=== PATIENT | female | born 1950 | race Caucasian/White ===

== ENCOUNTER 2018-05-05 09:03 | Day surgery (SDC) | payer MEDICARE ==
[2018-05-05] MEDS ORDERED: Lactated Ringers 1,000 ML IV SCH (10:15)
[2018-05-05] MEDS ORDERED: fentaNYL 100 MCG/2 ML SDV ONE (10:50)
[2018-05-05] MEDS ORDERED: Midazolam 1 MG/ML 2 ML SDV ONE (10:50)
[2018-05-05] MEDS ORDERED: Propofol 200 MG/20 ML SDV ONE ×2 (10:50→12:18)
--- NOTE | 2018-05-05 13:02 | OR ---
DATE OF PROCEDURE: 05/05/2018 PREOPERATIVE DIAGNOSIS: History of colon polyps. POSTOPERATIVE DIAGNOSES: 1. Diverticulosis. 2. History of colon polyps. PROCEDURE: Colonoscopy to the cecum. ANESTHESIA: IV anesthesia with monitored anesthesia care. INDICATION: This 67-year-old white female is referred for a colonoscopy because of a history of colon polyps. She says her last colonoscopic exam was done 3 years ago. I counseled her for the procedure, including risks and alternatives, and she gave her informed consent to proceed. DESCRIPTION OF PROCEDURE: The patient was placed in the left lateral decubitus position. IV anesthesia was administered by the Anesthesia Service. Time-out was held. A rectal exam was performed, which was unremarkable. The flexible video Olympus colonoscope was introduced through her anus, up her rectum and out her colon, all the way to the cecum. En route, we saw a few scattered left-sided diverticula. There was no bleeding or inflammation associated with them. Once the cecum was reached, the scope was slowly withdrawn examining the mucosa throughout. No additional mucosal abnormalities were noted. The scope was retroflexed in the rectum with the distal rectum appearing unremarkable. The scope was straightened and removed. She tolerated the procedure well. Kanu Pettit MD /[id number]
== END 2018-05-05 13:49 | disposition home or self-care (01) ==
LOC: JP.SDS 09:03
PROVIDERS: ATTEND Surgery
DX: Z12.11 Encounter for screening for malignant neoplasm of colon (principal); K57.30 Diverticulosis of large intestine without perforation or abscess without bleeding; Z86.010 Personal history of colon polyps; Z87.891 Personal history of nicotine dependence
CPT/HCPCS: 45378; J2250; J2704; J3010; J7120

== ENCOUNTER 2020-11-23 08:13 | Emergency (ER) | payer MEDICARE ==
[2020-11-23] MEDS ORDERED: cefTRIAXone 1 GM in Sodium Chloride 0.9% 50 ML IV ONE (08:38)
[2020-11-23] MEDS ORDERED: Amoxicillin/Clavulanate K 875-125 MG Tab PO ONE (08:39)
[2020-11-23] MEDS ORDERED: Bacitracin Oint 1 GM U/D Packet TOP ONE (08:40)
[2020-11-23] MEDS ORDERED: Diphtheria,Pertussis(Acell),Tetanus Vaccine 0.5 ML Syringe IM ONE (08:45)
--- NOTE | 2020-11-23 08:45 | EDM.PDOC ---
ED HPI GENERAL MEDICAL PROBLEM - General Chief Complaint: Bite:Animal, Insect Stated Complaint: DOG BITE ON L HAND Time Seen by Provider: 11/23/20 08:40 Source of Information: Reports: Patient History Limitations: Reports: No Limitations - History of Present Illness INITIAL COMMENTS - FREE TEXT/NARRATIVE: pt was bite by her own dog on Tuesday. She now has a swollen red hand . There is some scaby areas around the puncture sites. There is redness going up her arm. her dog was current with shots. Onset: Gradual Duration: Day(s):, Getting Worse Location: Reports: Upper Extremity, Left Associated Symptoms: Reports: No Other Symptoms Left Wrist Pain Score (Numeric/FACES): 2 - Related Data Allergies Allergy/AdvReac Type Severity Reaction Status Date / Time No Known Allergies Allergy Verified 05/05/18 09:21 Home Meds: Home Meds Ascorbic Acid [C-1000] 1,000 mg PO DAILY 05/03/18 [History] Calcium Carbonate [Calcium] 1,000 mg PO DAILY 05/03/18 [History] Citalopram [Citalopram HBr] 10 mg PO DAILY 05/03/18 [History] Glucosamine [Glucosamine Sulfate] 1,000 mg PO DAILY 05/03/18 [History] Levothyroxine [Synthroid] 50 mcg PO ACBREAKFAST 05/03/18 [History] Multivit with Calcium,Iron,Min [One Daily Women's] 1 each PO DAILY 05/03/18 [History] Nicholson-3S/DHA/Epa/Fish Oil [Nicholson-3 Fish Oil 1,000 mg Sfgl] 1 each PO DAILY 05/03/18 [History] Past Medical History HEENT History: Reports: Impaired Vision Gastrointestinal History: Reports: Colon Polyp 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: Musculoskeletal History: Reports: Back Pain, Chronic Endocrine/Metabolic History: Reports: Hypothyroidism - Infectious Disease History Infectious Disease History: Reports: Chicken Pox, Measles, Mumps, Rubella - Past Surgical History HEENT Surgical History: Reports: None GI Surgical History: Reports: Colonoscopy Endocrine Surgical History: Reports: None Musculoskeletal Surgical History: Reports: None Social & Family History - Family History Family Medical History: No Pertinent Family History - Tobacco Use Tobacco Use Status *Q: Never Tobacco User - Caffeine Use Caffeine Use: Reports: Coffee ED ROS GENERAL - Review of Systems Review Of Systems: See Below Constitutional: Reports: No Symptoms HEENT: Reports: No Symptoms Respiratory: Reports: No Symptoms Cardiovascular: Reports: No Symptoms Endocrine: Reports: No Symptoms GI/Abdominal: Reports: No Symptoms Musculoskeletal: Reports: Other (pt has a dog bite on the left hand which is now infected. ) Neurological: Reports: No Symptoms Psychiatric: Reports: No Symptoms ED EXAM, ANIMAL BITE - Physical Exam Exam: See Below Text/Narrative:: pt was bite by her own dog on Tuesday. She has not been soaking her hand and she now has redness and swelling of the hand and streaking up the arm. Exam Limited By: Intoxication General Appearance: Alert, Mild Distress Extremities: Other (pt has several puncture wounds from the dog bite on the left hand. She has swelling and redness of the hand. She has streaking going up the arm. ) Neurological: Alert, Oriented, Normal Cognition Course - Vital Signs Last Recorded V/S: Last Vital Signs Temp 36.4 C 11/23/20 08:27 Pulse 91 11/23/20 08:27 Resp 18 11/23/20 08:27 BP 145/91 H 11/23/20 08:27 Pulse Ox 100 11/23/20 08:27 - Orders/Labs/Meds Meds: Medications Discontinued Medications Generic Name Dose Route Start Last Admin Trade Name Trentonq PRN Reason Stop Dose Admin Amoxicillin/Clavulanate Potassium 1 tab 11/23/20 08:39 11/23/20 08:55 Amoxicillin/Clavulanate K 875-125 Mg Tab PO 11/23/20 08:40 1 tab ONETIME ONE Administration Bacitracin 1 dose 11/23/20 08:40 11/23/20 08:55 Bacitracin Oint 1 Gm U/D Packet TOP 11/23/20 08:41 1 dose ONETIME ONE Administration Diphtheria/Tetanus/Acell Pertussis 0.5 ml 11/23/20 08:45 11/23/20 08:56 Diphtheria,Pertussis(Acell),Tetanus Vaccine 0.5 Ml Syringe IM 11/23/20 08:46 0.5 ml .ONCE ONE Administration Ceftriaxone Sodium 1 gm/ 50 mls @ 100 mls/hr 11/23/20 08:38 11/23/20 08:52 Sodium Chloride IV 11/23/20 09:07 100 mls/hr ONETIME ONE Administration - Re-Assessments/Exams Free Text/Narrative Re-Assessment/Exam: 11/23/20 08:45 The hand was soaked in soapy solution, dressed with bacatracin. Pt was given rocephen 1 gm iv and augmentin 875. She will be placed on oral augmentin. Departure - Departure Time of Disposition: 09:30 Disposition: Home, Self-Care 01 Condition: Fair Clinical Impression: Infected dog bite - Discharge Information Instructions: Animal Bite, Adult, [id number] Referrals: Dolores Rubin DO [Primary Care Provider] - Forms: ED Department Discharge Care Plan Goals: soak hand daily in soapy solution, keep wounds open and draining. Apply bacatracin to the wounds and keep covered. tylenol and motrin for pain, augmentin 875 po tid for 24 hours and then bid, appointment with Dr Rubin on for follow up. Sepsis Event Note (ED) - Evaluation Sepsis Screening Result: No Definite Risk
== END 2020-11-23 09:35 | disposition home or self-care (01) ==
LOC: JP.ED 08:13
DX: S61.452A Open bite of left hand, initial encounter (principal); L08.9 Local infection of the skin and subcutaneous tissue, unspecified; E03.9 Hypothyroidism, unspecified; Z23 Encounter for immunization; Z79.899 Other long term (current) drug therapy; W54.0XXA Bitten by dog, initial encounter
CPT/HCPCS: 90471; 90715; 96365; 99283; A9270; J0696

== ENCOUNTER 2024-02-08 07:20 | Day surgery (SDC) | payer MEDICARE ==
[2024-02-08] MEDS: Lactated Ringers 1,000 ML IV SCH (07:56)
[2024-02-08] MEDS ORDERED: fentaNYL 100 MCG/2 ML SDV ONE (08:33)
[2024-02-08] MEDS ORDERED: Propofol 200 MG/20 ML SDV ONE (08:33)
[2024-02-08] MEDS ORDERED: Glycopyrrolate 0.2 MG/ML 5 ML MDV ONE (08:51)
[2024-02-08] MEDS ORDERED: Atropine 0.4 MG/ML SDV ONE (08:51)
== END 2024-02-08 10:24 | disposition home or self-care (01) ==
LOC: JP.SDS 07:20
PROVIDERS: ATTEND Surgery
DX: Z12.11 Encounter for screening for malignant neoplasm of colon (principal); K57.30 Diverticulosis of large intestine without perforation or abscess without bleeding
CPT/HCPCS: 00812; G0121; J1596; J2704; J3010; J7120; J0461